=== PATIENT | male | born 1980 | race Caucasian/White ===

== ENCOUNTER → 2019-04-07 15:37 | Outpatient (BNVA) | payer MEDICAID, SELFPAY | PROVIDERS: Family Provider Nurse Practitioner Family; PCP Nurse Practitioner Family; Visit Provider Specialist | DX: G43.711 Chronic migraine without aura, intractable, with status migrainosus (principal); G40.909 Epilepsy, unspecified, not intractable, without status epilepticus; G40.109 Localization-related (focal) (partial) symptomatic epilepsy and epileptic syndromes with simple partial seizures, not intractable, without status epilepticus; F41.9 Anxiety disorder, unspecified; F43.10 Post-traumatic stress disorder, unspecified | CPT/HCPCS: 99214 ==

== ENCOUNTER → 2019-10-01 15:38 | Outpatient (BNVA) | payer MEDICAID, SELFPAY | PROVIDERS: Family Provider Nurse Practitioner Family; PCP Nurse Practitioner Family; Visit Provider Specialist | DX: G40.109 Localization-related (focal) (partial) symptomatic epilepsy and epileptic syndromes with simple partial seizures, not intractable, without status epilepticus (principal) | CPT/HCPCS: 99213 ==

== ENCOUNTER → 2020-03-18 12:58 | Outpatient (BNVA) | payer MEDICAID, SELFPAY | PROVIDERS: Family Provider Nurse Practitioner Family; Visit Provider Specialist | DX: G40.109 Localization-related (focal) (partial) symptomatic epilepsy and epileptic syndromes with simple partial seizures, not intractable, without status epilepticus (principal); Z87.891 Personal history of nicotine dependence | CPT/HCPCS: 99214 ==

== ENCOUNTER 2020-04-02 11:29 | Emergency (ER) | payer OTHER, SELFPAY ==
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
[2020-04-02 11:40] VITALS: BP 135/74; PULSE 99; RESP 18; TEMP 37.1; O2SAT 97; BMI 26.0
[2020-04-02 11:45] VITALS: BP 135/74; PULSE 78; RESP 18; TEMP 37.1; O2SAT 97
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
[2020-04-02 12:25] VITALS: RESP 18; O2SAT 98
[2020-04-02] MEDS: morphine 4 mg/mL SDV 1 mL IVP (12:25)
[2020-04-02] MEDS: ondansetron 2 mg/ML SDV 2 mL 4 MG IVP (12:26)
[2020-04-02 12:32] LABS: Basophils # 0.1 10^3/uL (0.0-0.1); Basophils % 0.6 %; Eosinophils # 0.3 10^3/uL (0.0-0.8); Eosinophils % 1.4 %; Hematocrit 47.4 % (42.0-52.0); Hemoglobin 16.2 g/dL (11.7-16.6); Lymphocytes # 2.3 10^3/uL (0.8-4.8); Lymphocytes % 12.4 %; Mean Corpuscular HGB Conc 34.2 g/dL (30.0-36.0); Mean Corpuscular Hemoglobin 31.2 pg (28.0-34.0); Mean Corpuscular Volume 91.2 fL (80-94); Monocytes # 1.5 10^3/uL (0.2-0.9); Monocytes % 7.7 %; Neutrophils # 14.36 10^3/uL (1.8-7.7); Neutrophils % 76.6 %; Nucleated Red Blood Cells % 0 %; Platelet Count 290 10^3/cmm (130-400); Red Cell Distribution Width 11.4 % (12.1-15.1); White Blood Count 18.8 10^3/uL (4.0-10.0)
[2020-04-02 12:53] LABS: Alanine Aminotransferase 53 U/L (0-41); Albumin Level 4.5 g/dL (3.5-5.2); Alkaline Phosphatase 98 IU/L (40-130); Aspartate Amino Transferase 35 U/L (0-40); Blood Urea Nitrogen 17 mg/dL (6-20); Calcium 9.4 mg/dL (8.5-10.5); Carbon Dioxide 28 mmol/L (22-29); Chloride 102 mmol/L (98-107); Creatinine Clr Calc Pharmacy 138.7151; Globulin 3.2 g/dL (1.3-4.6); Glomerular Filtration Rate 107.6 mL/min (90-130); Glucose 99 mg/dL (65-115); Osmolality Calculated 290 mOsm/kg (285-295); Sodium 139 mmol/L (136-145); Total Bilirubin 0.2 mg/dL (0.15-1.2); Total Protein 7.7 g/dL (6.6-8.7)
[2020-04-02 13:27] VITALS: BP 129/83; PULSE 96; O2SAT 95
--- NOTE | 2020-04-02 14:38 | DCPLANNER ---
dude ranch manager was asked to schedule a follow up appointment for patient with ortho. dude ranch manager called the ortho clinic, spoke with Bela, gave clinic patients information. dude ranch manager was told that patients information would be printed and reviewed. Clinic will call patient with appointment information.
--- NOTE | 2020-04-06 08:06 | DCPLANNER ---
Patient has a follow up appointment scheduled for Monday, April 06, 2020 at 1:[address] Johnson at ortho. Clinic will call patient with appointment information.
--- NOTE | 2020-04-19 08:07 | DCPLANNER ---
Patient had a follow up appointment scheduled for 04.06.[address] Johnson at [facility] - patient did attend appointment.
== END 2020-04-02 13:30 | disposition home or self-care (01) ==
PROVIDERS: Emergency Provider Family Medicine
DX: S32.009A Unspecified fracture of unspecified lumbar vertebra, initial encounter for closed fracture (principal); S01.01XA Laceration without foreign body of scalp, initial encounter; Z87.891 Personal history of nicotine dependence; V86.65XA Passenger of 3- or 4- wheeled all-terrain vehicle (ATV) injured in nontraffic accident, initial encounter
CPT/HCPCS: 70450; 71250; 72125; 74176; 80053; 85025; 96374; 96375; 99283; J2270; J2405

== ENCOUNTER → 2020-04-06 13:34 | Outpatient (BNVA) | payer OTHER, MEDICAID, SELFPAY | PROVIDERS: PCP Specialist; Referring Provider Family Medicine; Visit Provider Orthopaedic Surgery | DX: T14.8XXA Other injury of unspecified body region, initial encounter (principal) | CPT/HCPCS: 72110 ==

== ENCOUNTER → 2020-05-07 10:16 | Outpatient (BNVA) | payer MEDICAID, SELFPAY | PROVIDERS: PCP Specialist; Visit Provider Orthopaedic Surgery | DX: S32.009A Unspecified fracture of unspecified lumbar vertebra, initial encounter for closed fracture; X58.XXXA Exposure to other specified factors, initial encounter | CPT/HCPCS: 72100 ==

== ENCOUNTER → 2020-09-14 14:41 | Outpatient (BNVA) | payer MEDICAID, SELFPAY | PROVIDERS: PCP Specialist; Visit Provider Specialist | DX: G40.109 Localization-related (focal) (partial) symptomatic epilepsy and epileptic syndromes with simple partial seizures, not intractable, without status epilepticus (principal); S00.03XD Contusion of scalp, subsequent encounter; S32.009D Unspecified fracture of unspecified lumbar vertebra, subsequent encounter for fracture with routine healing; V89.2XXD Person injured in unspecified motor-vehicle accident, traffic, subsequent encounter; Z87.891 Personal history of nicotine dependence | CPT/HCPCS: 99215 ==

== ENCOUNTER → 2021-03-15 14:57 | Outpatient (BNVA) | payer MEDICAID, SELFPAY | PROVIDERS: PCP Specialist; Visit Provider Specialist | DX: G40.109 Localization-related (focal) (partial) symptomatic epilepsy and epileptic syndromes with simple partial seizures, not intractable, without status epilepticus (principal); Z87.891 Personal history of nicotine dependence | CPT/HCPCS: 99213; 99214 ==

== ENCOUNTER → 2021-09-12 15:10 | Outpatient (BNVA) | payer MEDICAID, SELFPAY | PROVIDERS: PCP Specialist; Visit Provider Specialist | DX: G40.109 Localization-related (focal) (partial) symptomatic epilepsy and epileptic syndromes with simple partial seizures, not intractable, without status epilepticus (principal) | CPT/HCPCS: 99212; 99213 ==

== ENCOUNTER → 2022-03-29 15:00 | Outpatient (BNVA) | payer MEDICAID, SELFPAY | PROVIDERS: PCP Nurse Practitioner Family; Visit Provider Specialist | DX: G40.109 Localization-related (focal) (partial) symptomatic epilepsy and epileptic syndromes with simple partial seizures, not intractable, without status epilepticus (principal); M54.9 Dorsalgia, unspecified; R20.0 Anesthesia of skin; Z87.81 Personal history of (healed) traumatic fracture; R35.0 Frequency of micturition | CPT/HCPCS: 99214 ==

== ENCOUNTER 2022-04-14 15:07 | Outpatient (CLI) | payer MEDICAID, SELFPAY ==
--- NOTE | 2022-04-14 15:15 | MR_ITS ---
WS: [id number] MRI LUMBAR SPINE WITH CONTRAST TECHNIQUE: Sagittal T1, T2 and STIR imaging. Axial T1 and T2 imaging. Post gadolinium imaging was obt ained. CLINICAL INFORMATION: M54.9 - Dorsalgia, unspecified COMPARISON: None. FINDINGS: Mild lumbar curve. No acute compression. No high-grade central canal stenosis. No abnormal gadolinium enhancement. No abnormal enhancing cauda equina nerve rootlets. L1-L2: Tiny LEFT foraminal protrusion with mild LEFT foraminal narrowing. Slight contact of the exiti ng LEFT L1 nerve root. RIGHT foramen is patent. Mild facet arthropathy. L2-L3: No significant disc bulging. Spinal canal and foramen are patent. Mild facet arthropathy. L3-L4: Mild annular bulging. Small RIGHT foraminal protrusion slightly contacts the exiting RIGHT L3 nerve root. Mild RIGHT foraminal narrowing. LEFT foramen is patent. Mild facet arthropathy. L4-L5: Mild annular bulging with slight effacement of ventral thecal sac. Eccentric disc bulging LEFT greater than RIGHT with mild LEFT greater than RIGHT foraminal narrowing. Slight impingement exiting LEFT L4 nerve root. Mild facet arthropathy. L5-S1: Mild disc bulging with slight impingement traversing RIGHT S1 nerve root. Spinal canal and for amen are patent. Mild facet arthropathy. Visualized pelvic bony structures: Normal. Paravertebral soft tissues: Normal. MR/MR lumbar spine wo/w con [id number] IMPRESSION: 1. Mild lumbar curve. No acute compression. No high-grade central canal stenos is. 2. Small RIGHT foraminal protrusion L3-L4 slightly contacts the exiting RIGHT L3 nerve root. 3. LEFT foraminal protrusion L4-L5 slightly impinges the exiting LEFT L4 nerve root. Recommend correlation for LEFT L4 nerve root symptoms. 4. Annular bulging L5-S1 slightly impinges the traversing RIGHT S1 nerve root in the subarticular recess. 5. Mild facet arthropathy L3-L5. 6. Tiny LEFT foraminal protrusion L1-L2 with mild LEFT foraminal narrowing and slight contact exiting LEFT L1 nerve root.
[2022-04-14] MEDS: gadobenate dimeglumine 20 mL vial IV (16:00)
== END 2022-04-14 15:08 | disposition home or self-care (01) ==
LOC: RAD 15:08
PROVIDERS: PCP Nurse Practitioner Family; Visit Provider Specialist
DX: M51.26 Other intervertebral disc displacement, lumbar region (principal)
CPT/HCPCS: 72158; A9577

== ENCOUNTER → 2022-08-23 14:24 | Outpatient (BNVA) | payer MEDICAID, SELFPAY | PROVIDERS: PCP Nurse Practitioner Family; Visit Provider Specialist | DX: G40.119 Localization-related (focal) (partial) symptomatic epilepsy and epileptic syndromes with simple partial seizures, intractable, without status epilepticus (principal); F41.9 Anxiety disorder, unspecified | CPT/HCPCS: 99214 ==

== ENCOUNTER → 2023-02-28 14:48 | Outpatient (BNVA) | payer MEDICAID, SELFPAY | PROVIDERS: Visit Provider Specialist | DX: G40.109 Localization-related (focal) (partial) symptomatic epilepsy and epileptic syndromes with simple partial seizures, not intractable, without status epilepticus (principal) | CPT/HCPCS: 99213 ==

== ENCOUNTER → 2023-08-29 15:36 | Outpatient (BNVA) | payer MEDICAID, SELFPAY | PROVIDERS: Visit Provider Specialist | DX: R29.90 Unspecified symptoms and signs involving the nervous system (principal); G40.109 Localization-related (focal) (partial) symptomatic epilepsy and epileptic syndromes with simple partial seizures, not intractable, without status epilepticus | CPT/HCPCS: 99213 ==

== ENCOUNTER → 2024-03-04 14:45 | Outpatient (BNVA) | payer MEDICAID, SELFPAY | PROVIDERS: Visit Provider Specialist | DX: R29.90 Unspecified symptoms and signs involving the nervous system (principal); G40.109 Localization-related (focal) (partial) symptomatic epilepsy and epileptic syndromes with simple partial seizures, not intractable, without status epilepticus; K42.9 Umbilical hernia without obstruction or gangrene; R03.0 Elevated blood-pressure reading, without diagnosis of hypertension | CPT/HCPCS: 99214 ==

== ENCOUNTER → 2024-03-21 07:57 | Outpatient (BNVA) | payer MEDICAID, SELFPAY | PROVIDERS: PCP Specialist; Referring Provider Specialist; Visit Provider Surgery | DX: K42.9 Umbilical hernia without obstruction or gangrene (principal) | CPT/HCPCS: 99204 ==

== ENCOUNTER 2024-03-26 07:00 | Day surgery (SDC) | payer MEDICAID, SELFPAY ==
[2024-03-26 07:21] VITALS: BP 108/84; PULSE 78; RESP 16; TEMP 36.2; O2SAT 98; BMI 27.3
[2024-03-26] MEDS: sodium chloride 0.9% 500 ML 15 ML IV (07:38)
--- NOTE | 2024-03-26 07:50 | ANES.PREANE2 ---
Pre-Anesthetic Assessment Height/Weight: Height 1.8 m Weight 88.904 kg Temp Pulse Resp BP Pulse Ox O2 Del Method 97.1 F L 78 16 108/84 98 Room Air 03/26/24 07:21 03/26/24 07:21 03/26/24 07:21 03/26/24 07:21 03/26/24 07:21 03/26/24 07:21 Preop Diagnosis: screening Operation Date: 03/26/24 08:30 Proposed Procedures p EGD Dilation W/ Balloon [id number], R13.10(Not Applicable) - Emanuel Rider DO Familial anesthetic complications: none Was Beta Klaus taken within 24 hours: N/A Was Clonidine taken within 24 hours: N/A Last intake: Intake Last Liquid Date 03/25/24 Last Liquid Time 22:00 Last Solid Date 03/25/24 Last Solid Time 22:00 Social No alcohol and No tobacco Exam alert, oriented x 3, clear to auscultation bilaterally and regular rate & rhythm Airway Submandibular: within normal limits Cervical ROM: within normal limits Mallampati: Class II Dentition: full History/ROS No significant history except as noted and No significant complaints Pulmonary None reported CV/HEM None reported None reported Hepatic None reported GI Gastroesophageal Reflux Disease Metabolic None reported Musc/skel None reported Neuropsych Seizure Anesthetic Plan ASA status: 2 Anesthesia: MAC Risk of > 500 ml blood loss (7ml/kg in children): No Medications/Allergies Home Medications ?Medication ?Instructions ?Recorded ?Confirmed ?Last Taken ?Type clobazam 20 mg tablet (Onfi) 20 mg PO BID 90 days #180 tabs 03/04/24 03/26/24 03/26/24 Rx pantoprazole 40 mg tablet,delayed 40 mg PO BID 6 weeks #84 tabs 03/21/24 03/26/24 03/25/24 Rx release (Protonix) Allergies Allergy/AdvReac Type Severity Reaction Status Date / Time No Known Allergies Allergy Verified 03/04/24 15:00 Current Medications Generic Name Dose Route Start Last Admin Trade Name Freq PRN Reason Stop Dose Admin Sodium Chloride 500 mls @ 15 mls/hr 03/26/24 07:06 03/26/24 07:38 Sodium Chloride 0.9% IV 03/27/24 07:05 15 mls/hr .Q24H PRN Administration COLONOSCOPY FLUIDS PFSH Anesthesia Family History Other Cancer Seizure Social History Smoking and tobacco/nicotine status: never used tobacco/nicotine Alcohol intake: never Substance/Drug Use: never Data Anesthesia Cardiac Studies: No Data to Display
--- NOTE | 2024-03-26 08:22 | W.PM.OPSUD ---
Surgery/Procedure H&P Update DATE OF PROCEDURE: March 26, 2024 DATE H&P PERFORMED: 03/21/24 H&P UPDATE INFORMATION: I have reviewed H&P completed within last 30 days, I have examined patient prior to procedure and No changes to prior documentation PREOP DIAGNOSIS: screening PLANNED PROCEDURE: Operation Date: 03/26/24 08:30 Proposed Procedures p EGD Dilation W/ Balloon [id number], R13.10(Not Applicable) - Emanuel Rider DO
[2024-03-26 08:42] VITALS: BP 93/61; PULSE 91; RESP 18; TEMP 36.2; O2SAT 92
[2024-03-26 08:52] VITALS: BP 119/81; PULSE 90; RESP 18; O2SAT 93
[2024-03-26 09:00] VITALS: BP 114/74; PULSE 83; RESP 18; O2SAT 95
--- NOTE | 2024-03-26 09:24 | ANE.PACU2 ---
Inpatient post-anesthesia follow up: Airway intact: Yes Vital signs: Temperature 97.2 F Pulse Rate 83 Respiratory Rate 18 Blood Pressure 114/74 Pulse Oximetry 95 Oxygen Delivery Me thod Room Air Oxygen Flow Rate Fraction of Inspir ed Oxygen Hydration adequate: Yes Nausea and vomiting: No Pain level: 1 Mental status: Baseline
== END 2024-03-26 09:24 | disposition home or self-care (01) ==
PROVIDERS: Visit Provider Surgery
DX: K22.2 Esophageal obstruction (principal); K42.9 Umbilical hernia without obstruction or gangrene; K29.70 Gastritis, unspecified, without bleeding; K29.80 Duodenitis without bleeding; K21.9 Gastro-esophageal reflux disease without esophagitis; Z79.899 Other long term (current) drug therapy
CPT/HCPCS: 43239; 43249; 88305; J2704; J7040

== ENCOUNTER 2024-04-01 06:01 | Day surgery (SDC) | payer MEDICAID, SELFPAY ==
[2024-04-01] VITALS (14 sets, daily range): BP systolic 121–143; BP diastolic 72–95; PULSE 64–87; RESP 15–20; TEMP 36.1–36.6; O2SAT 91–98; BMI 27.4
[2024-04-01] MEDS: sodium chloride 0.9% 1,000 ML 30 ML IV (06:23)
--- NOTE | 2024-04-01 06:23 | ANES.PREANE2 ---
Pre-Anesthetic Assessment Height/Weight: Height 5 ft 11 in Weight 197 lb Temp Pulse Resp BP Pulse Ox O2 Del Method 97.4 F L 87 18 123/79 97 Room Air 04/01/24 06:15 04/01/24 06:15 04/01/24 06:15 04/01/24 06:15 04/01/24 06:15 04/01/24 06:15 Preop Diagnosis: Umbilical hernia Operation Date: 04/01/24 07:00 Proposed Procedures p Laparoscopic Umbilical Hernia Repair w/ Mesh 48810, K42.9(Not Applicable) - Emanuel Rider, DO Was Beta Klaus taken within 24 hours: N/A Was Clonidine taken within 24 hours: N/A Last intake: Intake Last Liquid Date 03/31/24 Last Liquid Time 21:00 Last Solid Date 03/31/24 Last Solid Time 21:00 Social No alcohol and No tobacco Exam alert, oriented x 3, clear to auscultation bilaterally and regular rate & rhythm Airway Submandibular: within normal limits Cervical ROM: within normal limits Mallampati: Class II Dentition: full Anesthetic Plan ASA status: 2 Anesthesia: General Other: No prior issues with anesthesia NPO since yesterday evening Patient just went through MAC anesthetic without issues Patient has a history of absence seizure's, on clobazam GERD on Protonix Labs 03/04/2024 reviewed acceptable for procedure METs greater than 4 Plan for GETA Medications/Allergies Home Medications ?Medication ?Instructions ?Recorded ?Confirmed ?Last Taken ?Type clobazam 20 mg tablet (Onfi) 20 mg PO BID 90 days #180 tabs 03/04/24 04/01/24 04/01/24 04:00 Rx pantoprazole 40 mg tablet,delayed 40 mg PO BID 6 weeks #84 tabs 03/21/24 03/31/24 03/31/24 Rx release (Protonix) Allergies Allergy/AdvReac Type Severity Reaction Status Date / Time No Known Allergies Allergy Verified 03/04/24 15:00 Current Medications Generic Name Dose Route Start Last Admin Trade Name Freq PRN Reason Stop Dose Admin Sodium Chloride 1,000 mls @ 30 mls/hr 04/01/24 06:15 04/01/24 06:23 Sodium Chloride 0.9% IV 04/02/24 06:14 30 mls/hr .Q24H OFELIA Administration PFSH Anesthesia Family History Other Cancer Seizure Social History Smoking and tobacco/nicotine status: never used tobacco/nicotine Alcohol intake: never Substance/Drug Use: never Data Anesthesia Cardiac Studies: No Data to Display
--- NOTE | 2024-04-01 06:59 | W.PM.OPSUD ---
Surgery/Procedure H&P Update DATE OF PROCEDURE: April 01, 2024 DATE H&P PERFORMED: 03/21/24 H&P UPDATE INFORMATION: I have reviewed H&P completed within last 30 days, I have examined patient prior to procedure and No changes to prior documentation PREOP DIAGNOSIS: Umbilical hernia PLANNED PROCEDURE: Operation Date: 04/01/24 07:00 Proposed Procedures p Laparoscopic Umbilical Hernia Repair w/ Mesh 11288, K42.9(Not Applicable) - Emanuel Rider DO
[2024-04-01] MEDS: ceFAZolin 2,000 mg SDV 2000 MG IVP (07:00)
[2024-04-01] MEDS: lidocaine-epi 2% PF 1:200,000 20 mL SDV XX (07:35)
[2024-04-01] MEDS: fentaNYL 50 mcg/mL INJ 2mL IVP ×2 (08:11→08:16)
--- NOTE | 2024-04-01 08:17 | PM.OP ---
Operative Report Date of procedure: April 01, 2024 Pre-op diagnosis: Umbilical hernia Post-op diagnosis: same Procedure done: Laparoscopic repair of umbilical hernia with mesh Implants: 11 cm round Ventralight mesh Specimens removed/disposition: Hernia sac Surgeon: Emanuel Rider DO Anesthesia: General and Local Estimated blood loss (mL): 5 Complications: None apparent Brief History: This is a very pleasant 34-year-old gentleman who presented to my office reducible umbilical hernia. He desired repair. Laparoscopic repair of umbilical hernia with mesh was indicated. The risks and benefits were explained and documented. Procedure: Patient was wheeled into the operative room and placed on the OR table in a supine position. Abdomen was inspected prepped and draped in usual sterile fashion. Time-out was performed and all present were in agreement. A 15 blade scalp was used to make a 5 millimeter incision left upper quadrant. A Veress needle was placed into the incision and intra-abdominal insufflation was brought to 15 millimeters of mercury. A 12 millimeter trocar was placed into the left lower quadrant. The energy but device was then used to cut out the hernia sac. A 6 inch ventral light mesh was placed into the abdomen and brought up through the umbilicus using an the Joss-Bernardo. The mesh was then tacked in place in a double crown fashion. The skeleton of the mesh was removed via the left lower quadrant. The hernia sac was then removed from the abdomen via the left lower quadrant. The left lower quadrant port site was closed with an 0 Vicryl suture in a Joss-Bernardo in a [id number] fashion. Incisions were closed with 4 O Vicryl in a subcuticular interrupted fashion. Skin glue was applied. A dressing that included cotton balls and a Tegaderm was placed over the umbilicus. Patient tolerated the procedure well.
--- NOTE | 2024-04-01 09:47 | ANE.PACU2 ---
Inpatient post-anesthesia follow up: Airway intact: Yes Vital signs: Temperature 97 F Pulse Rate 74 Respiratory Rate 16 Blood Pressure 122/72 Pulse Oximetry 96 Oxygen Delivery Me thod Room Air Oxygen Flow Rate 6 Fraction of Inspir ed Oxygen Hydration adequate: Yes Nausea and vomiting: No Pain level: 1 Mental status: Baseline
== END 2024-04-01 09:57 | disposition home or self-care (01) ==
PROVIDERS: Visit Provider Surgery
PROC: 0WQF4ZZ Repair Abdominal Wall, Percutaneous Endoscopic Approach (ICD-10-PCS; CPT 49591; principal; 2024-04-01 07:00)
DX: K42.9 Umbilical hernia without obstruction or gangrene (principal); K21.9 Gastro-esophageal reflux disease without esophagitis; Z79.899 Other long term (current) drug therapy
CPT/HCPCS: 49591; 51702; 88302; C1781; J0131; J0690; J1100; J1171; J2250; J2371; J2405; J2704; J2710; J3010; J3490; J7030